=== PATIENT | male | born 1955 | race Caucasian/White ===

== ENCOUNTER → 2017-02-21 | Outpatient (CLI) | payer BC ==
[~2017-02-21] MED LIST: ATOR-54 PO; TPM100 PO; Tramadol PO; meloxicam PO
--- NOTE | 2017-02-21 18:10 | DIAGNOSTIC IMAGING REPORT ---
TWO VIEW CHEST CLINICAL HISTORY: Cough. FINDINGS: PA and lateral chest radiographs are compared to study dated 11/21/2016. The cardiomediastinal silhouette is unremarkable. There is mild atherosclerotic calcification of the thoracic aorta. The lungs appear hyperinflated and hyperlucent with flattening the diaphragm suggesting obstructive physiology. There is increased retrosternal clear space on the lateral view. Nonspecific interstitial thickening is noted. No airspace consolidation or pleural effusion is identified. Apical scarring is observed. There is no pneumothorax. The skeletal structures appear osteopenic. Degenerative change and scoliosis are noted in the thoracic spine. IMPRESSION: 1. No acute cardiopulmonary abnormality. 2. Findings suggest emphysema. Electronically signed by: Aubrey Hernandez M.D. 02/21/2017 6:09 PM Dictated Date/Time: 02/21/2017 6:07 PM
== END | disposition home or self-care (01) ==
LOC: C.RAD 17:43
PROVIDERS: ATTEND Family Medicine
DX: J18.9 Pneumonia, unspecified organism (principal); R05 Cough